=== PATIENT | female | born 1980 | race Two or more races ===

== ENCOUNTER 2016-10-29 13:43 | Inpatient (IN) | payer OTHER ==
[~2016-10-29] VITALS: Ht 154.9 cm; Wt 61.2 kg
[2016-10-29] MEDS ORDERED: LORazepam 2MG/ML-1ML VIAL IV ONE (14:15)
[2016-10-29 15:05] LABS: Basophils # (auto) 0 uL; Basophils % (auto) 0.4 % (0.0-2.0); CONDITION Y; Eosinophils # (auto) 0 uL; Eosinophils % (auto) 0.2 % (0.0-7.0); Hematocrit 42.2 % (36.0-46.0); Hemoglobin 14.6 g/dL (12.2-16.2); Lymphocytes # (auto) 1.1 uL; Lymphocytes % (auto) 15.3 % (10.0-50.0); Mean Corpuscular Hemoglobin 31.1 pg (28.0-32.0); Mean Corpuscular Hgb Conc. 34.6 g/dL (32.0-36.0); Mean Corpuscular Volume 89.8 fL (80.0-100.0); Mean Platelet Volume 8.1 fL (7.4-10.4); Monocytes # (auto) 0.6 uL; Neutrophils # (auto) 5.6 uL; Neutrophils % (auto) 76.1 % (37.0-80.0); Platelet Count (auto) 245 10^3/uL (140-450); Red Cell Distribution Width 13.1 % (11.6-16.0); White Blood Cell 7.4 10^3/uL (4.4-10.8)
[2016-10-29 15:24] LABS: Albumin 3.9 g/dL (3.4-5.0); BUN/Creatinine Ratio 12.2; Bilirubin, Total 0.6 mg/dL (0.2-1.0); Calcium 8.5 mg/dL (8.5-10.1); Potassium 3.7 mmol/L (3.5-5.1); Total Protein 7.5 g/dL (6.4-8.2)
[2016-10-29 16:17] LABS: Urine Bilirubin Negative (Negative); Urine Blood Negative /uL (Negative); Urine Color Yellow (Yellow); Urine Glucose Normal (Normal); Urine Nitrite Negative (Negative); Urine RBC 2 /hpf (0 - 4); Urine Squamous Epithelial Cell MANY /hpf (<5); Urine Urobilinogen Normal (Negative)
[2016-10-29 16:27] LABS: Urine Ketone 1+ (Negative)
[2016-10-29] MEDS ORDERED: DOCUSATE SOD 100 MG CAP PO PRN (16:30)
[2016-10-29] MEDS ORDERED: MORPHINE SULF INJ 2 MG/ML SYRINGE 1ML IV PRN ×2 (16:30)
[2016-10-29] MEDS ORDERED: TEMAZEPAM 15 MG CAP PO PRN (16:30)
[2016-10-29] MEDS ORDERED: HYDROcodone-ACET 5/325MG TAB PO PRN (16:30)
[2016-10-29] MEDS ORDERED: ACETAMINOPHEN 325 MG TAB PO PRN (16:30)
[2016-10-29] MEDS ORDERED: NITROGLYCERIN 0.4 MG SL TAB SL PRN (16:30)
[2016-10-29] MEDS ORDERED: ONDANSETRON HCL 4 MG/2 ML VIAL IV PRN (16:30)
[2016-10-29] MEDS ORDERED: LORazepam 2MG/ML-1ML VIAL IV PRN (16:30)
[2016-10-29] MEDS ORDERED: NORTRIPTYLINE HCL 25 MG CAP PO SCH (22:00)
[2016-10-29] MEDS ORDERED: NORTRIPTYLINE HCL 10 MG CAP PO SCH (22:00)
[2016-10-29] MEDS: SODIUM CHLOR 0.9% PF (SALINE LOCK) 10ML VIAL IV SCH (22:06)
[2016-10-29] MEDS: LEVETIRACETAM 500 MG TAB PO SCH (22:06)
[2016-10-29] MEDS: FAMOTIDINE 20 MG TAB PO SCH (22:07)
[2016-10-30] MEDS: SODIUM CHLOR 0.9% PF (SALINE LOCK) 10ML VIAL IV SCH (06:02)
[2016-10-30 06:41] LABS: Basophils # (auto) 0 uL; Basophils % (auto) 0.5 % (0.0-2.0); CONDITION Y; Eosinophils # (auto) 0 uL; Eosinophils % (auto) 0.5 % (0.0-7.0); Hematocrit 38.8 % (36.0-46.0); Hemoglobin 13.3 g/dL (12.2-16.2); Lymphocytes # (auto) 1.7 uL; Lymphocytes % (auto) 30.1 % (10.0-50.0); Mean Corpuscular Hemoglobin 30.6 pg (28.0-32.0); Mean Corpuscular Hgb Conc. 34.2 g/dL (32.0-36.0); Mean Corpuscular Volume 89.4 fL (80.0-100.0); Mean Platelet Volume 7.7 fL (7.4-10.4); Monocytes # (auto) 0.6 uL; Monocytes % (auto) 10.8 % (0.0-12.0); Neutrophils # (auto) 3.4 uL; Neutrophils % (auto) 58.1 % (37.0-80.0); Platelet Count (auto) 234 10^3/uL (140-450); Red Cell Distribution Width 13.2 % (11.6-16.0); White Blood Cell 5.8 10^3/uL (4.4-10.8)
[2016-10-30 07:00] LABS: Albumin 3.3 g/dL (3.4-5.0); BUN/Creatinine Ratio 13.2; Potassium 3.7 mmol/L (3.5-5.1)
[2016-10-30 07:09] LABS: Total Protein 6.4 g/dL (6.4-8.2)
[2016-10-30] MEDS ORDERED: MULTIPLE VITAMIN TAB PO SCH (10:00)
[2016-10-30] MEDS: FAMOTIDINE 20 MG TAB PO SCH (10:10)
[2016-10-30] MEDS: LEVETIRACETAM 500 MG TAB PO SCH (10:10)
[2016-10-30 12:41] VITALS: BP 101/71
== END 2016-10-30 13:18 | disposition left against medical advice (07) | DRG 101 ==
LOC: ER 13:43 → EDBD 13:43 → TELE 13:44
PROVIDERS: ADMIT Internal Medicine; ATTEND Internal Medicine
DX: G40.409 Other generalized epilepsy and epileptic syndromes, not intractable, without status epilepticus (principal); G81.91 Hemiplegia, unspecified affecting right dominant side; Q27.30 Arteriovenous malformation, site unspecified; G43.109 Migraine with aura, not intractable, without status migrainosus; R53.1 Weakness; H53.8 Other visual disturbances; Z90.710 Acquired absence of both cervix and uterus
CPT/HCPCS: 36415; 70450; 80053; 81001; 82542; 85025; 94761; 96374